=== PATIENT | female | born 1970 | race Caucasian/White ===

== ENCOUNTER 2021-11-10 21:46 | Emergency (ER) | payer OTHER ==
[2021-11-10 21:51] VITALS: BMI 32.8
[2021-11-11 00:42] VITALS: BP 120/71; PULSE 83; TEMP 97.6
[2021-11-11 00:56] LABS: BASO % 0.8 % (0-2.0); EOS % 5.7 % (0-4.5); HEMATOCRIT 30.9 % (32.4-45.2); HEMOGLOBIN 10.2 GM/dL (10.7-15.3); LYMPH % 17.1 % (8-40); MCH 24.7 pg (25.7-33.7); MCHC 32.9 g/dl (32.0-36.0); MEAN CELL VOLUME 75.1 fl (80-96); MEAN PLT VOLUME 6.8 fl (7.5-11.1); MONO % 7.5 % (3.8-10.2); NEUT % 68.9 % (42.8-82.8); PLATELET COUNT 400 10^3/uL (134-434); RBC 4.12 M/mm3 (3.60-5.2); RDW 17.4 % (11.6-15.6); WHITE BLOOD COUNT 7.6 K/mm3 (4.0-10.0)
[2021-11-11 01:16] LABS: CALCIUM 10.2 mg/dL (8.5-10.1)
[2021-11-11 01:17] LABS: ALBUMIN 3.8 g/dl (3.4-5.0); BLOOD UREA NITROGEN 14.4 mg/dL (7-18)
[2021-11-11 01:20] LABS: CREATININE 0.6 mg/dL (0.55-1.3)
[2021-11-11 01:21] LABS: BILIRUBIN,TOTAL 0.2 mg/dL (0.2-1); TOT PROT 8.1 g/dl (6.4-8.2)
== END 2021-11-11 01:11 | disposition left against medical advice (07) ==
LOC: JER 21:46
DX: R53.1 Weakness (principal); R25.2 Cramp and spasm; R53.83 Other fatigue
CPT/HCPCS: 36415; 80053; 84443; 84703; 85025; 99283-25

== ENCOUNTER 2023-06-25 01:13 | Emergency (ER) | payer OTHER ==
[2023-06-25 01:19] VITALS: BP 108/75; PULSE 71; RESP 18; TEMP 97.6; BMI 28.3
[2023-06-25] MEDS ORDERED: SODIUM CHLORIDE 0.9% 500 ML INFUS.BAG IV ONE (01:50)
[2023-06-25 02:21] LABS: BASO % 0.8 % (0-2.0); EOS % 7.5 % (0-4.5); HEMATOCRIT 32.1 % (32.4-45.2); HEMOGLOBIN 10.9 GM/dL (10.7-15.3); LYMPH % 21.4 % (8-40); MCH 27.2 pg (25.7-33.7); MCHC 34.1 g/dl (32.0-36.0); MEAN CELL VOLUME 79.9 fl (80-96); NEUT % 63.3 % (42.8-82.8); PLATELET COUNT 313 10^3/uL (134-434); RBC 4.02 M/mm3 (3.60-5.2); RDW 17.5 % (11.6-15.6); WHITE BLOOD COUNT 6.4 K/mm3 (4.0-10.0)
[2023-06-25 02:22] LABS: PH,URINE 5.5 (5.0-8.0); URINE APPEARANCE CLEAR; URINE BILIRUBIN NEGATIVE (NEGATIVE); URINE COLOR YELLOW; URINE GLUCOSE (UA) NEGATIVE (NEGATIVE); URINE KETONE NEGATIVE (NEGATIVE); URINE LEUK ESTERASE NEGATIVE (NEGATIVE); URINE NITRITE NEGATIVE (NEGATIVE); URINE PROTEIN NEGATIVE (NEGATIVE); URINE UROBILINOGEN 0.2 mg/dL (0.2-1.0)
[2023-06-25 02:24] LABS: HCG,QUALITATIVE URINE Negative
[2023-06-25 02:38] LABS: INR 1.07 (0.83-1.09); PROTHROMBIN TIME (PATIENT) 12.4 SEC (9.7-13.0)
[2023-06-25 02:41] LABS: ACTIVATED PTT 30.3 SECONDS (25.2-36.5)
[2023-06-25 02:44] LABS: POTASSIUM 4.1 mmol/L (3.5-5.1)
[2023-06-25 02:47] LABS: BLOOD UREA NITROGEN 15.6 mg/dL (7-18); CALCIUM 8.9 mg/dL (8.5-10.1)
[2023-06-25 02:48] LABS: ALBUMIN 3.5 g/dl (3.4-5.0)
[2023-06-25 02:50] LABS: CREATININE 0.7 mg/dL (0.55-1.3)
[2023-06-25 02:52] LABS: BILIRUBIN,TOTAL 0.2 mg/dL (0.2-1); TOT PROT 7.5 g/dl (6.4-8.2)
== END 2023-06-25 03:13 | disposition home or self-care (01) ==
LOC: JER 01:13
DX: R42 Dizziness and giddiness (principal); R11.0 Nausea; K14.8 Other diseases of tongue; R35.89 Other polyuria; R10.9 Unspecified abdominal pain
CPT/HCPCS: 36415; 80053; 81003; 84703; 85025; 85610; 85730; 86850; 86900; 86901; 87086; 93005; 93010; 99284-25